=== PATIENT | female | born 1965 | race Caucasian/White ===

== ENCOUNTER → 2021-12-27 11:04 | Outpatient (BNVA) | payer BC, MEDICAID, SELFPAY | PROVIDERS: Referring Provider Nurse Practitioner Family; Visit Provider Obstetrics & Gynecology | DX: R35.0 Frequency of micturition (principal); Z12.4 Encounter for screening for malignant neoplasm of cervix | CPT/HCPCS: 81000; 87624 ==

== ENCOUNTER → 2022-01-03 13:44 | Outpatient (BNVA) | payer BC, MEDICAID, SELFPAY | PROVIDERS: Visit Provider Obstetrics & Gynecology | DX: N81.4 Uterovaginal prolapse, unspecified (principal) | CPT/HCPCS: 76856 ==

== ENCOUNTER 2022-02-06 09:09 | Observation (INO) | payer BC, MEDICAID, SELFPAY ==
[2022-02-02 15:28] VITALS: BMI 24.9
[2022-02-06] VITALS (16 sets, daily range): BP systolic 119–162; BP diastolic 73–108; PULSE 52–103; RESP 16–22; TEMP 36.1–37.1; O2SAT 93–100
[2022-02-06] MEDS: scopolamine 1.5 Patch 1 PATCH TRANSDERMA (06:56)
[2022-02-06] MEDS: phenazopyridine 100 mg Tablet 200 MG PO ×3 (06:56→21:08)
[2022-02-06] MEDS: CELEcoxib 200 mg Capsule 400 MG PO (06:56)
[2022-02-06] MEDS: gabapentin 300 mg Capsule PO (06:56)
[2022-02-06] MEDS: acetaminophen 1,000 MG/100 ML PIGGYBACK 400 MG IV (06:57)
--- NOTE | 2022-02-06 06:59 | W.PM.OPSUD ---
Surgery/Procedure H&P Update DATE OF PROCEDURE: February 06, 2022 DATE H&P PERFORMED: 02/01/22 H&P UPDATE INFORMATION: I have reviewed H&P completed within last 30 days, I have examined patient prior to procedure and No changes to prior documentation PREOP DIAGNOSIS: uterine prolapse PLANNED PROCEDURE: Operation Date: 02/06/22 07:00 Proposed Procedures p Laparoscopic assisted vaginal hysterectomy, bilateral salpingo-oophorectomy 18772,N81.4(Not Applicable) - Sonia Interiano MD Related Problem List Diagnoses (1) Uterine prolapse:
[2022-02-06] MEDS: sodium chloride 0.9% 1,000 ML 30 ML IV (07:00)
--- NOTE | 2022-02-06 07:01 | ANES.PREANE2 ---
Pre-Anesthetic Assessment Height/Weight: Height 1.63 m Weight 65.771 kg Temp Pulse Resp BP Pulse Ox O2 Del Method 97.6 F 68 18 160/108 98 02/06/22 06:36 02/06/22 06:36 02/06/22 06:36 02/06/22 06:36 02/06/22 06:36 02/06/22 06:36 Preop Diagnosis: uterine prolapse Operation Date: 02/06/22 07:00 Proposed Procedures p Laparoscopic assisted vaginal hysterectomy, bilateral salpingo-oophorectomy 24469,N81.4(Not Applicable) - Sonia Interiano MD Familial anesthetic complications: NOne Was Beta Edilma taken within 24 hours: N/A Was Clonidine taken within 24 hours: N/A Last intake: Intake Last Liquid Date 02/05/22 Last Liquid Time 20:00 Last Solid Date 02/05/22 Last Solid Time 20:00 Social Tobacco and No alcohol Exam alert, oriented x 3, clear to auscultation bilaterally and regular rate & rhythm Airway Mallampati: Class I Dentition: other (no teeth) Anesthetic Plan ASA status: 2 Anesthesia: General Risk of > 500 ml blood loss (7ml/kg in children): No Medications/Allergies Home Medications Medication Instructions Recorded Confirmed Last Taken Type No Known Home Medications 02/02/22 02/06/22 Unknown History Allergies Allergy/AdvReac Type Severity Reaction Status Date / Time No Known Allergies Allergy Verified 02/06/22 06:27 [facility] Anesthesia Medical History No pertinent past medical history Surgical History History of left oophorectomy No pertinent past surgical history Family History Mother CAD (coronary artery disease) Hypertension Denies family history of Diabetes Clotting disorder Hyperlipidemia Chronic kidney disease (CKD) Bleeding disorder Cancer Thyroid disease Stroke Social History Smoking and tobacco status: current every day smoker Data Anesthesia : 02/06/22 06:55 02/06/22 06:55 Cardiac Studies: No Data to Display
[2022-02-06 07:02] LABS: Basophils # 0.1 10^3/uL (0.0-0.1); Eosinophils # 0.2 10^3/uL (0.0-0.8); Eosinophils % 2.5 %; Hematocrit 45.6 % (37.0-47.0); Hemoglobin 14.9 g/dL (11.5-15.3); Lymphocytes # 3.2 10^3/uL (0.8-4.8); Mean Corpuscular HGB Conc 32.7 g/dL (30.0-36.0); Mean Corpuscular Volume 88.9 fl (81-99); Mean Platelet Volume 10.2 fL (7.4-10.4); Monocytes # 0.6 10^3/uL (0.2-0.9); Monocytes % 8.1 %; Neutrophils # 3.12 10^3/uL (1.8-7.7); Neutrophils % 43.3 %; Nucleated Red Blood Cells % 0 %; Platelet Count 303 10^3/cmm (130-400); Red Blood Count 5.13 10^6/uL (4.1-5.3); Red Cell Distribution Width 13.2 % (12.1-15.1); White Blood Count 7.2 10^3/uL (4.0-10.0)
[2022-02-06] MEDS: ceFAZolin 2,000 MG in sodium chloride 0.9% (plus) 50 ML 100 MG IV ×3 (07:08→22:42)
[2022-02-06] MEDS: vasopressin 20 unit/mL INJ XX (07:58)
[2022-02-06 08:04] LABS: Anion Gap 15.1 (5-19); Blood Urea Nitrogen 11 mg/dL (6-20); Calcium 8.5 mg/dL (8.5-10.5); Carbon Dioxide 25 mmol/L (22-29); Chloride 106 mmol/L (98-107); Glomerular Filtration Rate 86.2 mL/min (90-130); Glucose 96 mg/dL (65-115); Osmolality Calculated 293 mOsm/kg (285-295); Potassium 4.1 mmol/L (3.5-5.1); Sodium 142 mmol/L (136-145)
[2022-02-06] MEDS: sodium chloride 0.9% SDV 10 mL (08:04)
--- NOTE | 2022-02-06 09:09 | P.OP_ITS ---
Operative Report Date of procedure: February 06, 2022 Pre-op diagnosis: Preop Diagnosis uterine prolapse Post-op diagnosis: same Post-op findings: small uterus. normal appearing bilateral ovaries. Normal appearing left fallopian tube with evidence of previous tubal ligation Adhesion of the omentum to right pelvic sidewall. Adhesion of the bowel to the left tube and ovary Procedure done: laparoscopic assisted vaginal hysterectomy Specimens removed/disposition: uterus, tubes and ovaries to pathology Surgeon: Sonia Interiano Anesthesia: General Estimated blood loss (mL): 25 IV fluids (mL): 900 Urine output (mL): 100 Complications: none Condition: stable Disposition: PACU Procedure: The patient was taken to the operating room where general anesthesia was administered and found to be adequate. She was prepped and draped in the normal sterile fashion in the dorsal lithotomy position in [facility]. A Nunn catheter was placed. A weighted speculum was placed into the vagina and the anterior lip of the cervix was grasped with a single tooth tenaculum. The Zumi uterine manipulator was placed. The weighted speculum was removed. The gloves were changed and attention was turned to the abdomen. A 5 mm supraaumbilical incision was made. Using a 5 mm port with the camera, the port was placed into the abdomen. The abdomen was insufflated. Two low, lateral 5 mm ports were placed on the left and right under direct visualization from the camera. There was adhesion of the omentum to the right pelvic sidewall. This was taken down with the cautery. On the left, the large bowel epiploica was adhered to the previous tubal site. Using the cautery, carefully, the bowel was removed enought to create a plane. The left tube was grasped and elevated. Using the laparoscopic cautery, the infundibulopelvic ligament was cauterized lateral to the ovary and carried down through the broad ligament. This was performed the same way on the left. The uteroovarian ligaments as well as the round ligaments were ligated. Attention was then turned to the vaginal portion of the procedure. The weighted speculum was placed into the vagina. The zumi manipulator was removed. The single tooth tenaculum was removed and replaced with the krzysztof's tenaculum. 10 mL of dilute Pitressin was injected at the vesicovaginal junction. A circumferential incision was made at the vesicovaginal junction and the vaginal mucosa reflected cephalad. The posterior peritoneum was entered sharply with the Metzenbaum scissors and the long weighted speculum replaced. Using the Gwen clamps the uterosacral ligaments were clamped cut and suture- ligated. The anterior peritoneum was entered sharply with the metzenbaum scissors. Then sequentially the uterine arteries and cardinal ligaments were clamped cut and suture-ligated. A single-tooth tenaculum was used to deliver the uterus. The remaining segement of the utero-ovarian ligaments were clamped cut and suture-ligated bilaterally and the specimen was removed. There was good hemostasis with only mild bleeding from the cuff. The peritoneum was closed with a pursestring using 2-0 Vicryl. The vaginal cuff was closed with 0 Vicryl in a running locked pattern incorporating the uterosacral ligaments into the lateral aspects of the vaginal cuff. The Nunn catheter was removed and the cystoscope advanced into the bladder. The patient was given pyridium and bilateral spill was noted. There were no injuries or deficits noted in the bladder. The cystoscope was removed and the Nunn was replaced. Vaginal packing was placed for good hemostasis. The gloves and gowns were changed and attention was turned to the abdomen. The ports were closed with 2-0 monocryl with skin glue. The patient tolerated the procedure well. Sponge lap and needle counts were correct x3. She was taken to the recovery room in stable condition.
--- NOTE | 2022-02-06 10:21 | PC.NURSE ---
Patient arrived to OB floor from PACU at this time
[2022-02-06] MEDS: ketorolac 30 mg/mL INJ IVP ×3 (10:27→21:08)
[2022-02-06] MEDS: dextrose 5%-lactated ringers 1,000 ML 125 ML IV ×2 (10:27→19:21)
--- NOTE | 2022-02-06 15:28 | ANE.PACU2 ---
Inpatient post-anesthesia follow up: Airway intact: Yes Vital signs: Temperature 97.0 F Pulse Rate 52 Respiratory Rate 18 Blood Pressure 127/74 Pulse Oximetry 95 Oxygen Delivery Me thod Room Air Oxygen Flow Rate 6 Fraction of Inspir ed Oxygen Hydration adequate: Yes Nausea and vomiting: No Pain level: 1 Mental status: Baseline
[2022-02-06] MEDS: nicotine 14 mg Patch 1 PATCH TRANSDERMA (16:51)
[2022-02-06] MEDS: docusate sodium 100 mg Capsule PO (19:23)
--- NOTE | 2022-02-06 19:34 | PC.NURSE ---
Patient was helped up to the chair at this time. She tolerated it well. She denies pain at this time.
--- NOTE | 2022-02-06 20:25 | PC.NURSE ---
Patient was helped back to bed at this time. She tolerated it well.
[2022-02-07] MEDS: ketorolac 30 mg/mL INJ IVP (03:50)
[2022-02-07] MEDS: dextrose 5%-lactated ringers 1,000 ML 125 ML IV (03:51)
[2022-02-07 04:15] VITALS: BP 116/65; PULSE 78; RESP 18; TEMP 37.5; O2SAT 94
--- NOTE | 2022-02-07 05:21 | PC.NURSE ---
Patient is up ambulating in the stiles at this time. She completed two laps with this nurse. She tolerated it well. Upon arriving back to room patient sat down in chair and I changed the bed. Patients packing and lauren was removed at this time. She tolerated the procedure well.
[2022-02-07 05:25] LABS: Hemoglobin 12.3 g/dL (11.5-15.3); Mean Corpuscular HGB Conc 33.2 g/dL (30.0-36.0); Mean Corpuscular Hemoglobin 29.4 pg (28.0-34.0); Mean Corpuscular Volume 88.5 fl (81-99); Mean Platelet Volume 10.4 fL (7.4-10.4); Platelet Count 280 10^3/cmm (130-400); Red Blood Count 4.18 10^6/uL (4.1-5.3); Red Cell Distribution Width 13.3 % (12.1-15.1); White Blood Count 14.1 10^3/uL (4.0-10.0)
--- NOTE | 2022-02-07 08:18 | PM.DCS ---
Discharge Providers Date of Admission: 02/06/22 09:09 Date of Discharge: February 07, 2022 Attending Provider at Admission: Sonia Interiano MD Attending Provider at Discharge: Sonia Interiano MD Diagnoses at Discharge Discharge Diagnosis (1) Uterine prolapse: Status: Acute Reason for Visit Reason for Visit: uterovaginal prolapse, unspecified Hospital Course Hospital Course The patient was admitted for surgery. she did well postoperatively and was ready for discharge on day #1 Physical Exam Narrative: No concerns this morning. Const: COMMON NORMALS: no acute distress, average body habitus, patient oriented x3, no limitations, healthy appearing, alert and well nourished GENERAL APPEARANCE: cooperative, comfortable, well kempt and well developed ORIENTATION/CONSCIOUSNESS: Yes awake, Yes oriented to person, Yes oriented to place and Yes oriented to time Resp: COMMON NORMALS: normal respiratory effort EFFORT & INSPECTION: Yes able to speak in complete sentences GI: COMMON NORMALS: Soft to palpation and non-tender PALPATION: Yes Soft to palpation Extremity: COMMON NORMALS: no calf tenderness Neuro: COMMON NORMALS: patient oriented x3 SENSORIUM/ORIENTATION: Yes alert, Yes oriented to person, Yes oriented to place and Yes oriented to time Psych: COMMON NORMALS: mental status grossly normal, Normal thought process present, cooperative, normal affect and speech normal APPEARANCE: Yes well kempt SPEECH: Yes normal speech THOUGHT PROCESS: Normal thought process present Urinary Catheter Management: Nunn Latex: Cath Placed During This Visit: yes, but has since been removed by the nurse Reason for Continuing Indwelling Catheter: Decision to DC Catheter Urinary Catheter Date of Insertion: 02/06/22 Urinary Catheter Time of Insertion: 07:46 Date Urinary Catheter Removed: 02/07/22 Time Urinary Catheter Discontinued: 05:15 Discharge Data Studies Completed and Pending Pending at discharge Category Date Time Status ES surgery / GI images Routine Exams 02/06/22 06:46 Taken Retype for Patiets ABO/Rh Routine Lab 02/06/22 05:10 Received Urine Culture Routine Lab 02/06/22 07:48 Received Pathology: Surgical [PTH] Routine Pth 02/06/22 08:58 Received Laboratory Results WBC 14.1 10^3/uL (4.0-10.0) H 02/07/22 05:10 RBC 4.18 10^6/uL (4.1-5.3) 02/07/22 05:10 Hgb 12.3 g/dL (11.5-15.3) 02/07/22 05:10 Hct 37.0 % (37.0-47.0) 02/07/22 05:10 MCV 88.5 fl (81-99) 02/07/22 05:10 MCH 29.4 pg (28.0-34.0) 02/07/22 05:10 MCHC 33.2 g/dL (30.0-36.0) 02/07/22 05:10 RDW 13.3 % (12.1-15.1) 02/07/22 05:10 Plt Count 280 10^3/cmm (130-400) 02/07/22 05:10 MPV 10.4 fL (7.4-10.4) 02/07/22 05:10 Neut % (Auto) 43.3 % 02/06/22 06:55 Lymph % (Auto) 45.0 % 02/06/22 06:55 Stephenson % (Auto) 8.1 % 02/06/22 06:55 Eos % (Auto) 2.5 % 02/06/22 06:55 Baso % (Auto) 1.0 % 02/06/22 06:55 Neut # (Auto) 3.12 10^3/uL (1.8-7.7) 02/06/22 06:55 Lymph # (Auto) 3.2 10^3/uL (0.8-4.8) 02/06/22 06:55 Stephenson # (Auto) 0.6 10^3/uL (0.2-0.9) 02/06/22 06:55 Eos # (Auto) 0.2 10^3/uL (0.0-0.8) 02/06/22 06:55 Baso # (Auto) 0.1 10^3/uL (0.0-0.1) 02/06/22 06:55 Nucleated RBC % (auto) 0 % 02/06/22 06:55 Nucleated RBCs # 0.0 /100WBC 02/06/22 06:55 Sodium 142 mmol/L (136-145) 02/06/22 07:28 Potassium 4.1 mmol/L (3.5-5.1) 02/06/22 07:28 Chloride 106 mmol/L (98-107) 02/06/22 07:28 Carbon Dioxide 25 mmol/L (22-29) 02/06/22 07:28 Anion Gap 15.1 (5-19) 02/06/22 07:28 BUN 11 mg/dL (6-20) 02/06/22 07:28 Creatinine 0.7 mg/dL (0.5-0.9) 02/06/22 07:28 GFR Calculation 86.2 mL/min (90-130) L 02/06/22 07:28 Glucose 96 mg/dL (65-115) 02/06/22 07:28 Calculated Osmolality 293 mOsm/kg (285-295) 02/06/22 07:28 Calcium 8.5 mg/dL (8.5-10.5) 02/06/22 07:28 Blood Type A Positive 02/06/22 06:55 Rho(D) Type Positive 02/06/22 06:55 Antibody Screen Negative 02/06/22 06:55 Vitals Last Vital Signs Temp 99.5 F 02/07/22 04:15 Pulse 78 02/07/22 04:15 Resp 18 02/07/22 04:15 BP 116/65 02/07/22 04:15 Pulse Ox 94 02/07/22 04:15 O2 Del Method 02/07/22 04:15 O2 Flow Rate 6 02/06/22 09:35 Discharge Plan Discharge Patient Disposition: Home Condition: Stable Prescriptions: New ibuprofen 800 mg Tablet 800 mg PO Q8H Qty: 30 0RF hydrocodone-acetaminophen 5-325 mg Tablet 1 tab PO Q4H PRN (Reason: Moderate To Severe Pain) Qty: 30 0RF docusate sodium 100 mg Capsule 100 mg PO BID Qty: 60 0RF Discharge Orders: Discharge Order (Routine); Ordered 02/07/22 Ordered By: Sonia Inteirano Patient Instructions: Opioid Safety Discharge Attestations Time Spent in Discharge Care*: less than 30 min Quality Metrics Clinical Quality Measures [ No reported AMI, CVA or VTE this stay] Coding Level of Care Code Acute Chg FW DC note Diagnoses Uterine prolapse N81.4
[2022-02-07] MEDS: ibuprofen 800 mg tablet PO (09:16)
[2022-02-07] MEDS: docusate sodium 100 mg Capsule PO (09:16)
[2022-02-07 09:20] VITALS: BP 122/76; PULSE 69; RESP 18; O2SAT 96
== END 2022-02-07 10:35 | disposition home or self-care (01) ==
LOC: OBGYN 09:10
PROVIDERS: Admitting Provider Obstetrics & Gynecology; Visit Provider Obstetrics & Gynecology
PROC: 0UT9FZZ Resection of Uterus, Via Natural or Artificial Opening With Percutaneous Endoscopic Assistance (ICD-10-PCS; CPT 58552; principal; 2022-02-06 07:00)
PROC: (CPT 58661; 2022-02-06 07:00)
PROC: 0TJB8ZZ Inspection of Bladder, Via Natural or Artificial Opening Endoscopic (ICD-10-PCS; CPT 52000; 2022-02-06 07:00)
DX: N81.4 Uterovaginal prolapse, unspecified (principal); N83.8 Other noninflammatory disorders of ovary, fallopian tube and broad ligament; D25.9 Leiomyoma of uterus, unspecified; F17.200 Nicotine dependence, unspecified, uncomplicated
CPT/HCPCS: 58552; 36415; 80048; 85025; 85027; 86850; 86900; 87086; 88305; G0378; J0330; J1100; J1200; J1885; J2250; J2405; J2704; J2710; J3010; J3490; J7030